=== PATIENT | male | born 1955 | race African-American/Black ===

== ENCOUNTER 2017-05-23 09:28 | Emergency (ER) | payer SELFPAY ==
[~2017-05-23] VITALS: Ht 188 cm; Wt 75.0 kg
[~2017-05-23 09:28] MED LIST: TOBRA.3%O RIGHT EYE; Z.0.NO CURRENT MEDS
[2017-05-23] MEDS ORDERED: IOHEXOL 350 MG/ML 10 ML VIAL (for RAD DIAG) IVCONTRAST ONE (09:29)
[2017-05-23 09:34] VITALS: BP 196/92; PULSE 64; RESP 16; TEMP 98; O2SAT 98
[2017-05-23 11:27] LABS: AUTOMATED NEUTROPHIL # 5.8 TH/MM3 (1.8-7.7); BASOPHIL % 0.2 % (0.0-2.0); EOSINOPHIL % 0.2 % (0.0-4.0); HEMATOCRIT 40.3 % (39.0-51.0); HEMOGLOBIN 13.6 GM/DL (13.0-17.0); LYMPH % 24.6 % (9.0-44.0); LYMPHOCYTE # 2.3 TH/MM3 (1.0-4.8); MEAN CELL VOLUME 86.1 FL (80.0-100.0); MEAN CORPUSCULAR HEMOGLOBIN 29.1 PG (27.0-34.0); MEAN CORPUSCULAR HGB CONC 33.8 % (32.0-36.0); MEAN PLATELET VOLUME 9.4 FL (7.0-11.0); MONO % 12.2 % (0.0-8.0); MONOCYTE # 1.1 TH/MM3 (0-0.9); NEUT % 62.8 % (16.0-70.0); PLATELET COUNT 227 TH/MM3 (150-450); RED BLOOD COUNT 4.68 MIL/MM3 (4.50-5.90); RED CELL DISTRIBUTION WIDTH 14.3 % (11.6-17.2); WHITE BLOOD COUNT 9.2 TH/MM3 (4.0-11.0)
[2017-05-23] MEDS ORDERED: ASPIRIN 81 MG CHEW TAB PO ONE (11:30)
[2017-05-23] MEDS ORDERED: SODIUM CHLORIDE 0.9% FLUSH 10 ML FLUSH IVF PRN (11:30)
--- NOTE | 2017-05-23 11:33 | PD ---
HPI Chief Complaint: Chest Pain Time Seen by Provider: 11:18 Travel History International Travel<30 days: No Contact w/Intl Traveler<30days: No Traveled to known affect area: No History of Present Illness HPI 61-year-old male presents to the emergency department for evaluation of right lateral chest pain that started 2 days ago. Patient denies any injury. He states the pain is exacerbated with bending over, movement, deep breathing. Patient states the pain is slightly relieved with sitting still. Patient denies any history of similar pain in the past. He reports no chronic medical problems and takes no prescribed medications. He states he does not follow with a physician. Patient currently rates the pain 4/10, but states it will go up to 9 or 10/10 with movement. He reports the pain as pressure. It radiates to the right shoulder. He denies any cardiac history. He denies any recent surgery or travel. No leg edema. No history DVT or PE. No hemoptysis. Moderate severity. PFSH Past Medical History Diminished Hearing: No Social History Alcohol Use: No Tobacco Use: No Substance Use: No Allergies-Medications (Allergen,Severity, Reaction): Coded Allergies: No Known Allergies (Verified Allergy, Mild, 07/27/07) Reported Meds & Prescriptions Reported Meds & Active Scripts Active Azithromycin 250 Mg Tab 250 Mg PO DAILY 4 Days Amlodipine (Amlodipine Besylate) 5 Mg Tab 5 Mg PO DAILY Review of Systems Except as stated in HPI: all other systems reviewed are Neg Physical Exam Narrative GENERAL: Well-nourished, well-developed male patient, ambulatory. Afebrile SKIN: Focused skin assessment warm/dry. HEAD: Normocephalic. Atraumatic. EYES: No scleral icterus. No injection or drainage. NECK: Supple, trachea midline. No JVD or lymphadenopathy. CARDIOVASCULAR: Regular rate and rhythm without murmurs, gallops, or rubs. Bilateral radial and pedal pulses are 2+. RESPIRATORY: Breath sounds equal bilaterally. No accessory muscle use. Lungs sounds are clear to auscultation. GASTROINTESTINAL: Abdomen soft, non-tender, nondistended. No abdominal pain to palpation. MUSCULOSKELETAL: No cyanosis, or edema. BACK: Nontender without obvious deformity. No CVA tenderness. Data Data Last Documented VS Vital Signs Date Time Temp Pulse Resp B/P (MAP) Pulse Ox O2 Delivery O2 Flow Rate FiO2 05/23/17 12:58 76 18 177/88 (117) 97 Room Air 05/23/17 09:34 98.0 Orders Orders Electrocardiogram (05/23/17 09:29) Complete Blood Count With Diff (05/23/17 09:29) Basic Metabolic Panel (Bmp) (05/23/17 09:29) Ckmb (Isoenzyme) Profile (05/23/17 09:29) Troponin I (05/23/17 09:29) D-Dimer (05/23/17 11:26) Magnesium (Mg) (05/23/17 11:26) Prothrombin Time / Inr (Pt) (05/23/17 11:26) Act Partial Throm Time (Ptt) (05/23/17 11:26) Chest, Single Ap (05/23/17 11:26) Ecg Monitoring (05/23/17 11:26) Bilateral Bp Monitoring (05/23/17 11:26) Iv Access Insert/Monitor (05/23/17 11:26) Oximetry (05/23/17 11:26) Oxygen Administration (05/23/17 11:26) Aspirin Chew (Aspirin Chew) (05/23/17 11:30) Sodium Chloride 0.9% Flush (Ns Flush) (05/23/17 11:30) Hydralazine Inj (Apresoline Inj) (05/23/17 11:45) CKMB (05/23/17 09:55) CKMB% (05/23/17 09:55) Ct Pulmonary Angiogram (05/23/17 ) Iohexol 350 Inj (Omnipaque 350 Inj) (05/23/17 09:29) Electrocardiogram (05/23/17 09:50) Azithromycin (Zithromax) (05/23/17 14:30) Ketorolac Inj (Toradol Inj) (05/23/17 14:45) Ed Discharge Order (05/23/17 14:32) Labs Laboratory Tests Test 05/23/17 09:55 05/23/17 11:30 White Blood Count 9.2 TH/MM3 Red Blood Count 4.68 MIL/MM3 Hemoglobin 13.6 GM/DL Hematocrit 40.3 % Mean Corpuscular Volume 86.1 FL Mean Corpuscular Hemoglobin 29.1 PG Mean Corpuscular Hemoglobin Concent 33.8 % Red Cell Distribution Width 14.3 % Platelet Count 227 TH/MM3 Mean Platelet Volume 9.4 FL Neutrophils (%) (Auto) 62.8 % Lymphocytes (%) (Auto) 24.6 % Monocytes (%) (Auto) 12.2 % Eosinophils (%) (Auto) 0.2 % Basophils (%) (Auto) 0.2 % Neutrophils # (Auto) 5.8 TH/MM3 Lymphocytes # (Auto) 2.3 TH/MM3 Monocytes # (Auto) 1.1 TH/MM3 Eosinophils # (Auto) 0.0 TH/MM3 Basophils # (Auto) 0.0 TH/MM3 CBC Comment DIFF FINAL Differential Comment Blood Urea Nitrogen 12 MG/DL Creatinine 1.44 MG/DL Random Glucose 120 MG/DL Calcium Level 8.8 MG/DL Sodium Level 142 MEQ/L Potassium Level 3.6 MEQ/L Chloride Level 107 MEQ/L Carbon Dioxide Level 28.7 MEQ/L Anion Gap 6 MEQ/L Estimat Glomerular Filtration Rate 61 ML/MIN Total Creatine Kinase 149 U/L Creatine Kinase MB LESS THAN 0.5 NG/ML Troponin I LESS THAN 0.02 NG/ML Prothrombin Time 10.5 SEC Prothromb Time International Ratio 1.0 RATIO Activated Partial Thromboplast Time 26.8 SEC D-Dimer Quantitative (PE/DVT) 1.14 MG/L FEU Magnesium Level 2.5 MG/DL MDM Medical Decision Making Medical Screen Exam Complete: Yes Emergency Medical Condition: Yes Medical Record Reviewed: Yes Interpretation(s) chest x-ray - CONCLUSION: 1. No acute cardiopulmonary disease. ct pulmonary angiogram - CONCLUSION: 1. Evaluation for PE in the lower lobes is significantly limited secondary to the severe respiratory motion artifact. However, no PE is identified. 2. There is some nonspecific subpleural airspace consolidation in the right lower lobe with questionable trace right pleural fluid. 3. Questionable right lobe liver lesion. This area is not well-visualized on this examination. Consider abdomen CT with contrast or liver ultrasound for further evaluation. Differential Diagnosis Chest wall pain versus muscle strain versus ACS versus PE versus pneumonia versus pneumothorax Narrative Course 61-year-old male presents to the emergency department for right-sided chest pain for 2 days. EKG, CBC, BMP, CK, troponin, magnesium, PTT, PT/INR, d-dimer are ordered and pending. Chest x-ray is ordered and pending. Patient is given aspirin 162 mg by mouth. EKG shows SR, 1mm ST elevation in V2, PVC. CBC shows no acute abnormality. BMP shows creatinine of 1.44. CK is 149. Troponin is less than 0.02. Magnesium is 2.5. Coags are unremarkable. D-dimer is elevated at 1.14. Chest x-ray shows no acute cardiopulmonary disease. CT PA shows 1. Evaluation for PE in the lower lobes is significantly limited secondary to the severe respiratory motion artifact. However, no PE is identified; 2. There is some nonspecific subpleural airspace consolidation in the right lower lobe with questionable trace right pleural fluid; 3. Questionable right lobe liver lesion. This area is not well-visualized on this examination. Consider abdomen CT with contrast or liver ultrasound for further evaluation. I discussed the case with my attending physician, Dr. Chavez. She examined the patient as well. Symptoms are not consistent with cardiac issue. Symptoms are consistent with muscle strain. Patient will be discharged with a prescription for azithromycin for possible right lower lobe consolidation. Patient is given first dose azithromycin here as well as Toradol 30 mg IV. Patient will also be discharged prescription amlodipine for hypertension. The patient verbalizes agreement and understanding. Diagnosis Primary Impression: Right-sided chest wall pain Additional Impression: Hypertension Qualified Codes: I10 - Essential (primary) hypertension Referrals: Primary Care Physician call for appointment Patient Instructions: Chest Wall Pain (ED), General Instructions, Hypertension (ED) Additional Instructions: Take antibiotic as directed until gone. Follow-up with a primary care physician. [id number] Tylenol every 4 hours as needed for pain. Take amlodipine as directed. Return to the emergency department for any acute worsening of symptoms Med/Other Pt SpecificInfo: Prescription(s) given Scripts Azithromycin (Azithromycin) 250 Mg Tab 250 MG PO DAILY for Infection for 4 Days, #4 TAB 0 Refills Prov: Niurka Espinal 05/23/17 Amlodipine (Amlodipine) 5 Mg Tab 5 MG PO DAILY for Blood Pressure Management, #30 TAB 0 Refills Prov: Niurka Espinal 05/23/17 Disposition: 01 DISCHARGE HOME Condition: Stable Niurka Espinal May 23, 2017 11:33
[2017-05-23 11:38] VITALS: RESP 18; O2SAT 98
[2017-05-23 11:45] VITALS: BP_SYST 200; BP_SYST 212; BP_DIAS 103; BP_DIAS 98; PULSE 52; PULSE 54; RESP 18; O2SAT 98
[2017-05-23] MEDS ORDERED: hydrALAZINE HCL 20 MG/ML VIAL IV PUSH ONE (11:45)
[2017-05-23 11:49] LABS: BICARBONATE 28.7 MEQ/L (21.0-32.0); BLOOD UREA NITROGEN 12 MG/DL (7-18); CALCIUM 8.8 MG/DL (8.5-10.1); CHLORIDE 107 MEQ/L (98-107); CREATININE 1.44 MG/DL (0.60-1.30); GLOMERULAR FILTRATION RATE 61 ML/MIN (>89); GLUCOSE,RANDOM 120 MG/DL (74-106); SODIUM (NA) 142 MEQ/L (136-145)
[2017-05-23 11:52] LABS: TROPONIN I LESS THAN 0.02 NG/ML (0.02-0.05)
--- NOTE | 2017-05-23 11:57 | RADRPT ---
EXAM DATE/TIME: 05/23/2017 11:32 [facility] COMPARISON: No previous studies available for comparison. INDICATIONS : Chest pains with shortness of breath. MEDICAL HISTORY : None. SURGICAL HISTORY : None. ENCOUNTER: Initial ACUITY: 1 day PAIN SCORE: 8/10 LOCATION: Right chest FINDINGS: A single view of the chest demonstrates the lungs to be symmetrically aerated without evidence of mas s, infiltrate or effusion. The cardiomediastinal contours are unremarkable. Osseous structures are intact. CONCLUSION: 1. No acute cardiopulmonary disease. James Iverson MD on May 23, 2017 at 11:54 Board Certified Radiologist. This report was verified electronically.
[2017-05-23 12:10] LABS: D-DIMER 1.14 MG/L FEU (0.00-0.50); PROTHROMBIN TIME - PATIENT 10.5 SEC (9.8-11.6)
--- NOTE | 2017-05-23 12:57 | RADRPT ---
EXAM DATE/TIME: 05/23/2017 12:29 [facility] COMPARISON: No previous studies available for comparison. INDICATIONS : Right side chest pain and shortness of breath. IV CONTRAST: 72 cc Omnipaque 350 (iohexol) IV RADIATION DOSE: 9.67 CTDIvol (mGy) MEDICAL HISTORY : Hypertension. SURGICAL HISTORY : None. ENCOUNTER: Initial ACUITY: 1 day PAIN SCALE: 5/10 LOCATION: Right chest TECHNIQUE: Volumetric scanning of the chest was performed using a pulmonary embolism protocol MIP images were re constructed. Using automated exposure control and adjustment of the mA and/or kV according to patien t size, radiation dose was kept as low as reasonably achievable to obtain optimal diagnostic quality images. DICOM format image data is available electronically for review and comparison. Follow-up recommendations for detected pulmonary nodules are based at a minimum on nodule size and pa tient risk factors according to Fleischner Society Guidelines. FINDINGS: PULMONARY ARTERIES: There is respiratory motion artifact significantly limiting evaluation of the lower lobe pulmonary ar teries. No PE is identified through the subsegmental level pulmonary arteries in the upper lobes. The lower lobes are only confidently evaluated to the proximal segmental level. More distal PE cannot be excluded. LUNGS: There is mild subpleural patchy consolidation in the right lower lobe. Present atelectasis is present in the left lung. There are a few lung cysts bilaterally. PLEURAE: Questionable trace right pleural fluid. MEDIASTINUM: Heart and great vessels demonstrate no acute finding. No lymphadenopathy is visualized. MUSCULOSKELETAL: There are degenerative changes of the thoracic spine. MISCELLANEOUS: No definite abnormality is identified. There is a partially visualized hypo-enhancing area in the rig ht posterior liver. CONCLUSION: 1. Evaluation for PE in the lower lobes is significantly limited secondary to the severe respiratory motion artifact. However, no PE is identified. 2. There is some nonspecific subpleural airspace consolidation in the right lower lobe with questiona ble trace right pleural fluid. 3. Questionable right lobe liver lesion. This area is not well-visualized on this examination. Consid er abdomen CT with contrast or liver ultrasound for further evaluation. Duane Pineda MD on May 23, 2017 at 12:49 Board Certified Radiologist. This report was verified electronically.
[2017-05-23 12:58] VITALS: BP 177/88; PULSE 76; RESP 18; O2SAT 97
--- NOTE | 2017-05-23 14:20 | PD ---
Physical Exam Narrative I, Dr. Chavez, have reviewed the advance practice practitioner's documentation and am in agreement, met with the patient face to face, made the diagnosis, and the medical decision making was done by me. *My assessment and Findings: Pleuritic chest pain vs. musculoskeletal pain vs. pneumonia vs. costochondritis 61yo M with right sided chest pain that is sharp and worst with movement and deep breathing for 2 days. Denies any sob, n/v, abdominal pain, focal weakness or numbness. Pt has history of HTN but has not seen a doctor or taken medication for HTN for a while. BP elevated at 212/103. Pt given hydralazine and blood pressure is improved to 177/88. Pt denies any family history of sudden cardiac . Pt's chest pain does not seem cardiac. Labs reviewed, no leukocytosis. H/H normal. Troponin negative. Creatinine 1.44, no prior to compare. D-dimer elevated at 1.14. CXR negative. CT chest showed evaluation for PE in lower lobes is significantly limited secondary to severe respiratory motion artifact. However, no PE is identified. There is some nonspecific subpleural airspace consolidation in right lower lobe with questionable trace right pleural fluid. Pt does have a cough so will cover with azithromycin. Pt given toradol for pain. Will start pt on amlodipine for HTN but instructed pt to call insurance to obtain PMD. Return precautions given. Data Data Last Documented VS Vital Signs Date Time Temp Pulse Resp B/P (MAP) Pulse Ox O2 Delivery O2 Flow Rate FiO2 05/23/17 12:58 76 18 177/88 (117) 97 Room Air 05/23/17 09:34 98.0 Orders Orders Electrocardiogram (05/23/17 09:29) Complete Blood Count With Diff (05/23/17 09:29) Basic Metabolic Panel (Bmp) (05/23/17 09:29) Ckmb (Isoenzyme) Profile (05/23/17 09:29) Troponin I (05/23/17 09:29) D-Dimer (05/23/17 11:26) Magnesium (Mg) (05/23/17 11:26) Prothrombin Time / Inr (Pt) (05/23/17 11:26) Act Partial Throm Time (Ptt) (05/23/17 11:26) Chest, Single Ap (05/23/17 11:26) Ecg Monitoring (05/23/17 11:26) Bilateral Bp Monitoring (05/23/17 11:26) Iv Access Insert/Monitor (05/23/17 11:26) Oximetry (05/23/17 11:26) Oxygen Administration (05/23/17 11:26) Aspirin Chew (Aspirin Chew) (05/23/17 11:30) Sodium Chloride 0.9% Flush (Ns Flush) (05/23/17 11:30) Hydralazine Inj (Apresoline Inj) (05/23/17 11:45) CKMB (05/23/17 09:55) CKMB% (05/23/17 09:55) Ct Pulmonary Angiogram (05/23/17 ) Iohexol 350 Inj (Omnipaque 350 Inj) (05/23/17 09:29) Electrocardiogram (05/23/17 09:50) Azithromycin (Zithromax) (05/23/17 14:30) Ketorolac Inj (Toradol Inj) (05/23/17 14:45) Ed Discharge Order (05/23/17 14:32) Labs Laboratory Tests Test 05/23/17 09:55 05/23/17 11:30 White Blood Count 9.2 TH/MM3 Red Blood Count 4.68 MIL/MM3 Hemoglobin 13.6 GM/DL Hematocrit 40.3 % Mean Corpuscular Volume 86.1 FL Mean Corpuscular Hemoglobin 29.1 PG Mean Corpuscular Hemoglobin Concent 33.8 % Red Cell Distribution Width 14.3 % Platelet Count 227 TH/MM3 Mean Platelet Volume 9.4 FL Neutrophils (%) (Auto) 62.8 % Lymphocytes (%) (Auto) 24.6 % Monocytes (%) (Auto) 12.2 % Eosinophils (%) (Auto) 0.2 % Basophils (%) (Auto) 0.2 % Neutrophils # (Auto) 5.8 TH/MM3 Lymphocytes # (Auto) 2.3 TH/MM3 Monocytes # (Auto) 1.1 TH/MM3 Eosinophils # (Auto) 0.0 TH/MM3 Basophils # (Auto) 0.0 TH/MM3 CBC Comment DIFF FINAL Differential Comment Blood Urea Nitrogen 12 MG/DL Creatinine 1.44 MG/DL Random Glucose 120 MG/DL Calcium Level 8.8 MG/DL Sodium Level 142 MEQ/L Potassium Level 3.6 MEQ/L Chloride Level 107 MEQ/L Carbon Dioxide Level 28.7 MEQ/L Anion Gap 6 MEQ/L Estimat Glomerular Filtration Rate 61 ML/MIN Total Creatine Kinase 149 U/L Creatine Kinase MB LESS THAN 0.5 NG/ML Troponin I LESS THAN 0.02 NG/ML Prothrombin Time 10.5 SEC Prothromb Time International Ratio 1.0 RATIO Activated Partial Thromboplast Time 26.8 SEC D-Dimer Quantitative (PE/DVT) 1.14 MG/L FEU Magnesium Level 2.5 MG/DL MDM Supervised Visit with ARIK: Yes Interpretation(s) EKG: NSR 64bpm. LAD. 1mm ST elevation in V2. It is isolated. No reciprocal changes. PVC. No prior to compare. Diagnosis Primary Impression: Right-sided chest wall pain Scripts Azithromycin (Azithromycin) 250 Mg Tab 250 MG PO DAILY for Infection for 4 Days, #4 TAB 0 Refills Prov: Niurka Espinal 05/23/17 Amlodipine (Amlodipine) 5 Mg Tab 5 MG PO DAILY for Blood Pressure Management, #30 TAB 0 Refills Prov: Niurka Espinal 05/23/17 Cheryl Chavez DO May 23, 2017 14:20
[2017-05-23] MEDS ORDERED: ZITHTAB PO (14:24)
[2017-05-23] MEDS ORDERED: AZITHROMYCIN 250 MG TAB PO ONE (14:30)
[2017-05-23] MEDS ORDERED: AZIT250T3 PO (14:31)
[2017-05-23] MEDS ORDERED: AMLO5TAB2 PO (14:31)
[2017-05-23] MEDS ORDERED: KETOROLAC TROMETHAMINE 30 MG/ML (IVP) VIAL IV PUSH ONE (14:45)
--- NOTE | 2017-05-24 20:08 | EKG ---
Date Performed: 05/23/2017 Time Performed: 09:50:01 PTAGE: 61 years EKG: SINUS BRADYCARDIA BORDERLINE LEFT AXIS DEVIATION NONSPECIFIC T-WAVE ABNORMALITY BORDERLINE ECG Since the PREVIOUS TRACING , no significant change noted PREVIOUS TRACIN05/23/2017 09.45 DOCTOR: Lety Montgomery Interpretating Date/Time 05/24/2017 20:07:15
--- NOTE | 2017-05-24 20:09 | EKG ---
Date Performed: 05/23/2017 Time Performed: 11:35:23 PTAGE: 61 years EKG: Sinus rhythm WITH OCCASIONAL VENTRICULAR PREMATURE COMPLEXES BORDERLINE LEFT AXIS DEVIATION MODERATE VOLTAGE CRIT ERIA FOR LVH, CONSIDER NORMAL VARIANT NONSPECIFIC T-WAVE ABNORMALITY BORDERLINE ECG Since the PREVIOUS TRACING , no significant change noted PREVIOUS TRACIN11/06/1999 22.02 DOCTOR: Lety Montgomery Interpretating Date/Time 05/26/2017 07:04:59
== END 2017-05-23 15:03 | disposition home or self-care (01) ==
LOC: NEPE 09:28
DX: R07.89 Other chest pain (principal); I10 Essential (primary) hypertension; R94.31 Abnormal electrocardiogram [ECG] [EKG]
CPT/HCPCS: 71045; 71275; 80048; 82550; 82552; 83735; 84484; 85025; 85379; 85610; 85730; 93005; 96374; 96375; 99285; J0360; J1885; Q9967